=== PATIENT | male | born 1995 | race Two or more races ===

== ENCOUNTER 2018-01-13 18:49 | Emergency (ER) | payer MEDICAID ==
[~2018-01-13] VITALS: Ht 177.8 cm; Wt 65.8 kg
[2018-01-13 22:14] VITALS: BP 143/77
[2018-01-13] MEDS ORDERED: HYDROcodone-ACET 10/325MG TAB PO ONE (23:00)
[2018-01-13] MEDS ORDERED: IBUPROFEN 800 MG TAB PO ONE (23:00)
== END 2018-01-13 23:18 | disposition home or self-care (01) ==
LOC: ER 18:49
DX: S62.316A Displaced fracture of base of fifth metacarpal bone, right hand, initial encounter for closed fracture (principal); W20.8XXA Other cause of strike by thrown, projected or falling object, initial encounter; Y93.89 Activity, other specified; Y99.8 Other external cause status; Y92.89 Other specified places as the place of occurrence of the external cause
CPT/HCPCS: 29125; 73130